=== PATIENT | male | born 1985 | race Caucasian/White ===

== ENCOUNTER 2017-05-06 20:28 | Emergency (ER) | payer MEDICAID ==
[~2017-05-06] VITALS: Ht 167.6 cm; Wt 66.0 kg
[~2017-05-06 20:28] MED LIST: OLAN5Z PO
[2017-05-06 21:34] LABS: BASOPHILS % (AUTO) 0.6 % (0.0-2.0); EOSINOPHILS % (AUTO) 0.7 % (1.0-6.0); HEMATOCRIT 40.3 % (41-53); LYMPHOCYTES # (AUTO) 1.9 K/uL (1.0-4.8); LYMPHOCYTES % (AUTO) 41.1 % (22.0-44.0); MEAN CORPUSCULAR HEMOGLOBIN 31.4 pg (26.0-34.0); MEAN CORPUSCULAR HGB CONC 34.6 G/dL (31.0-37.0); MEAN CORPUSCULAR VOLUME 91 fL (80-100); MONOCYTES # (AUTO) 0.3 K/uL (0.1-1.0); NEUTROPHILS # (AUTO) 2.4 K/uL (1.8-7.7); NEUTROPHILS % (AUTO) 51.6 % (40.0-70.0); RED BLOOD CELL COUNT(AUTO) 4.45 MIL/uL (4.50-5.90); RED CELL DISTRIBUTION WIDTH 16.1 % (11.5-14.5); WHITE BLOOD COUNT (AUTO) 4.7 K/uL (4.5-11.0)
[2017-05-06 21:49] LABS: ANION GAP 14 mmol/L (8-16); CALCIUM, TOTAL 9.5 mg/dL (8.8-10.5); CARBON DIOXIDE 26 mmol/L (22-29); CHLORIDE 97 mmol/L (98-107); CREATININE 0.74 mg/dL (0.60-1.30); GLOMERULAR FILTR. RATE CALC > 60 mL/min (>60); POTASSIUM 3.8 mmol/L (3.5-5.1); SODIUM SERUM 137 mmol/L (136-145); UREA NITROGEN, BLOOD 3 mg/dL (7-18)
[2017-05-06 21:55] LABS: ALANINE AMINOTRANSFERASE 278 U/L (12-78); ALBUMIN 4.6 g/dL (3.4-5.0); ASPARTATE AMINOTRANSFERASE 269 U/L (15-37); BILIRUBIN,TOTAL 0.6 mg/dL (0.1-1.0); TOTAL PROTEIN, SERUM 8.4 g/dL (6.4-8.2)
[2017-05-06 22:41] LABS: PLATELET COUNT (AUTO) 93 K/uL (150-450)
[2017-05-07 05:36] VITALS: BP 122/73
== END 2017-05-07 06:05 | disposition home or self-care (01) ==
LOC: EMS 20:29
DX: R41.82 Altered mental status, unspecified (principal); F10.129 Alcohol abuse with intoxication, unspecified; K70.30 Alcoholic cirrhosis of liver without ascites; F32.9 Major depressive disorder, single episode, unspecified; Z59.0 Homelessness
CPT/HCPCS: 36415; 80053; 80307; 85025; 99284; G0480

== ENCOUNTER 2017-05-20 23:03 | Emergency (ER) | payer MEDICAID ==
[~2017-05-20] VITALS: Ht 165.1 cm; Wt 72.7 kg
[2017-05-20] MEDS ORDERED: BENZ1TAB10 PO (23:18)
[2017-05-20] MEDS ORDERED: HALO10 PO (23:18)
[2017-05-20] MEDS ORDERED: SIMV-259 PO (23:18)
[2017-05-21 00:04] LABS: BASOPHILS % (AUTO) 0.7 % (0.0-2.0); EOSINOPHILS % (AUTO) 0.7 % (1.0-6.0); HEMATOCRIT 37.8 % (41-53); HEMOGLOBIN 12.9 g/dL (13.5-17.5); LYMPHOCYTES # (AUTO) 1.4 K/uL (1.0-4.8); LYMPHOCYTES % (AUTO) 21.3 % (22.0-44.0); MEAN CORPUSCULAR HEMOGLOBIN 31.7 pg (26.0-34.0); MEAN CORPUSCULAR VOLUME 93 fL (80-100); MONOCYTES # (AUTO) 0.9 K/uL (0.1-1.0); MONOCYTES % (AUTO) 13.4 % (2.0-9.0); NEUTROPHILS # (AUTO) 4.3 K/uL (1.8-7.7); NEUTROPHILS % (AUTO) 63.9 % (40.0-70.0); RED BLOOD CELL COUNT(AUTO) 4.06 MIL/uL (4.50-5.90); RED CELL DISTRIBUTION WIDTH 15.2 % (11.5-14.5); WHITE BLOOD COUNT (AUTO) 6.7 K/uL (4.5-11.0)
[2017-05-21 00:12] LABS: ANION GAP 12 mmol/L (8-16); CALCIUM, TOTAL 9.6 mg/dL (8.8-10.5); CARBON DIOXIDE 25 mmol/L (22-29); CHLORIDE 105 mmol/L (98-107); CREATININE 0.87 mg/dL (0.60-1.30); GLOMERULAR FILTR. RATE CALC > 60 mL/min (>60); POTASSIUM 3.9 mmol/L (3.5-5.1); SODIUM SERUM 142 mmol/L (136-145); UREA NITROGEN, BLOOD 15 mg/dL (7-18)
[2017-05-21 00:19] LABS: ALANINE AMINOTRANSFERASE 255 U/L (12-78); ALBUMIN 4.2 g/dL (3.4-5.0); ASPARTATE AMINOTRANSFERASE 141 U/L (15-37); BILIRUBIN,TOTAL 0.3 mg/dL (0.1-1.0); TOTAL PROTEIN, SERUM 7.7 g/dL (6.4-8.2)
[2017-05-21 00:47] LABS: PLATELET COUNT (AUTO) 127 K/uL (150-450)
[2017-05-21 07:11] VITALS: BP 123/92
== END 2017-05-21 07:40 | disposition home or self-care (01) ==
LOC: EMS 23:04
DX: F10.239 Alcohol dependence with withdrawal, unspecified (principal); K70.30 Alcoholic cirrhosis of liver without ascites; F91.9 Conduct disorder, unspecified; F32.9 Major depressive disorder, single episode, unspecified; Y90.0 Blood alcohol level of less than 20 mg/100 ml
CPT/HCPCS: 99285

== ENCOUNTER 2017-05-21 10:55 | Emergency (ER) | payer MEDICAID ==
[~2017-05-21] VITALS: Ht 162.6 cm; Wt 86.4 kg
[~2017-05-21 10:55] MED LIST changes: +BENZ1TAB10 PO; +HALO10 PO; -OLAN5Z PO; +SIMV-259 PO
[2017-05-21] MEDS ORDERED: SODIUM CHLORIDE 0.9% 2,000 ML IV ONE (12:00)
[2017-05-21 12:13] LABS: BASOPHILS % (AUTO) 0.6 % (0.0-2.0); EOSINOPHILS % (AUTO) 1.1 % (1.0-6.0); HEMATOCRIT 38.6 % (41-53); HEMOGLOBIN 13.2 g/dL (13.5-17.5); LYMPHOCYTES # (AUTO) 1.1 K/uL (1.0-4.8); LYMPHOCYTES % (AUTO) 26.5 % (22.0-44.0); MEAN CORPUSCULAR HEMOGLOBIN 31.8 pg (26.0-34.0); MEAN CORPUSCULAR HGB CONC 34.2 G/dL (31.0-37.0); MEAN CORPUSCULAR VOLUME 93 fL (80-100); MONOCYTES # (AUTO) 0.6 K/uL (0.1-1.0); MONOCYTES % (AUTO) 15.8 % (2.0-9.0); NEUTROPHILS # (AUTO) 2.3 K/uL (1.8-7.7); PLATELET COUNT (AUTO) 134 K/uL (150-450); RED BLOOD CELL COUNT(AUTO) 4.17 MIL/uL (4.50-5.90); RED CELL DISTRIBUTION WIDTH 14.9 % (11.5-14.5); WHITE BLOOD COUNT (AUTO) 4.1 K/uL (4.5-11.0)
[2017-05-21 12:22] LABS: ANION GAP 9 mmol/L (8-16); CALCIUM, TOTAL 9.3 mg/dL (8.8-10.5); CARBON DIOXIDE 26 mmol/L (22-29); CHLORIDE 106 mmol/L (98-107); CREATININE 0.72 mg/dL (0.60-1.30); GLOMERULAR FILTR. RATE CALC > 60 mL/min (>60); POTASSIUM 3.8 mmol/L (3.5-5.1); SODIUM SERUM 141 mmol/L (136-145); UREA NITROGEN, BLOOD 11 mg/dL (7-18)
[2017-05-21 12:28] LABS: ACETAMINOPHEN < 2 mcg/mL (10-30); ALANINE AMINOTRANSFERASE 278 U/L (12-78); ASPARTATE AMINOTRANSFERASE 163 U/L (15-37); BILIRUBIN,TOTAL 0.5 mg/dL (0.1-1.0); TOTAL PROTEIN, SERUM 7.5 g/dL (6.4-8.2)
[2017-05-21 12:29] LABS: AMMONIA 40 umol/L (11-32)
[2017-05-21 12:30] LABS: TROPONIN I < 0.02 ng/mL (0.00-0.05)
[2017-05-21 12:39] LABS: SALICYLATE 1.8 mg/dL (2.8-20.0)
[2017-05-21 13:15] LABS: APPEARANCE,URINE CLEAR (CLEAR); GLUCOSE, URINE (UA) NEGATIVE (NEGATIVE); KETONES,URINE NEGATIVE (NEGATIVE); LEUKOCYTE ESTERASE ,URINE NEGATIVE (NEGATIVE); OCCULT BLOOD,URINE NEGATIVE (NEGATIVE); PROTEIN,URINE NEGATIVE (NEGATIVE)
[2017-05-21 13:17] LABS: ADD UA MICROSCOPIC NO
[2017-05-21] MEDS ORDERED: ACETAMINOPHEN 325 MG TABLET PO PRN (13:30)
[2017-05-21] MEDS ORDERED: LACTULOSE 200 GM/300 ML RECTAL SOLUTION PR ONE (13:30)
[2017-05-21] MEDS ORDERED: 0.9% SODIUM CHLORIDE 10 ML SYRINGE IVP PRN (13:30)
[2017-05-21] MEDS ORDERED: LACTULOSE 20 GM/30 ML SOLUTION UDCUP PO ONE (15:30)
[2017-05-21 23:17] VITALS: BP 118/70
== END 2017-05-21 23:20 | disposition home or self-care (01) ==
LOC: EMS 10:56
DX: K72.90 Hepatic failure, unspecified without coma (principal); R74.0 Nonspecific elevation of levels of transaminase and lactic acid dehydrogenase [LDH]; R41.82 Altered mental status, unspecified
CPT/HCPCS: 36415; 51702; 70450; 80053; 80307; 81003; 82140; 84484; 85025; 93005; 96360; 99285; G0480 ×2; G0481; J7030; 96361

== ENCOUNTER 2017-07-05 13:54 | Inpatient (IN) | payer MEDICAID ==
[~2017-07-05] VITALS: Ht 165.1 cm; Wt 69.9 kg
[2017-07-05 17:57] VITALS: BP 122/85
[2017-07-05] MEDS ORDERED: MAG HYDROX/AL HYDROX/SIMETH ES 30 ML SUSPENSION UDCUP PO PRN (18:45)
[2017-07-05] MEDS ORDERED: HALOPERIDOL 5 MG TABLET PO PRN (18:45)
[2017-07-05] MEDS ORDERED: ZOLPIDEM TARTRATE 10 MG TABLET PO PRN (18:45)
[2017-07-05] MEDS ORDERED: LORazepam 2 MG TABLET PO PRN (18:45)
[2017-07-05] MEDS ORDERED: LOPERAMIDE HCL 2 MG CAPSULE PO PRN (18:45)
[2017-07-05 19:00] VITALS: BP_SYST 109; BP_SYST 115; BP_DIAS 61; BP_DIAS 79
[2017-07-05] MEDS: OLANZapine 10 MG TABLET PO SCH (20:10)
[2017-07-05] MEDS ORDERED: PANT40TA25 PO (20:41)
[2017-07-05] MEDS ORDERED: LIB5 PO (20:41)
[2017-07-05] MEDS ORDERED: THIA100 PO (20:41)
[2017-07-05] MEDS ORDERED: OLAN7.5T2 PO (20:41)
[2017-07-05] MEDS ORDERED: MULT-1203 PO (20:41)
[2017-07-05 20:49] VITALS: BP 121/76
[2017-07-05 21:01] VITALS: BP 118/67
[2017-07-06 00:55] VITALS: BP 106/63
[2017-07-06 08:23] LABS: BASOPHILS # (AUTO) 0.05 K/uL (0.00-0.20); BASOPHILS % (AUTO) 0.7 % (0.0-2.0); EOSINOPHILS # (AUTO) 0.07 K/uL (0.00-0.70); EOSINOPHILS % (AUTO) 1.12 % (1.0-6.0); HEMATOCRIT 38.9 % (41-53); LYMPHOCYTES # (AUTO) 1.7 K/uL (1.0-4.8); LYMPHOCYTES % (AUTO) 27.3 % (22.0-44.0); MEAN CORPUSCULAR HEMOGLOBIN 31.5 pg (26.0-34.0); MEAN CORPUSCULAR HGB CONC 33.4 G/dL (31.0-37.0); MEAN CORPUSCULAR VOLUME 94 fL (80-100); MONOCYTES # (AUTO) 0.9 K/uL (0.1-1.0); MONOCYTES % (AUTO) 15.2 % (2.0-9.0); NEUTROPHILS # (AUTO) 3.4 K/uL (1.8-7.7); NEUTROPHILS % (AUTO) 55.6 % (40.0-70.0); PLATELET COUNT (AUTO) 167 K/uL (150-450); RED BLOOD CELL COUNT(AUTO) 4.14 MIL/uL (4.50-5.90); WHITE BLOOD COUNT (AUTO) 6.1 K/uL (4.5-11.0)
[2017-07-06 08:37] VITALS: BP 110/64
[2017-07-06 08:59] LABS: ALANINE AMINOTRANSFERASE 163 U/L (12-78); ALBUMIN 3.6 g/dL (3.4-5.0); ANION GAP 5 mmol/L (8-16); ASPARTATE AMINOTRANSFERASE 62 U/L (15-37); BILIRUBIN,TOTAL 0.2 mg/dL (0.1-1.0); CALCIUM, TOTAL 8.6 mg/dL (8.8-10.5); CARBON DIOXIDE 32 mmol/L (22-29); CHLORIDE 104 mmol/L (98-107); CREATININE 0.78 mg/dL (0.60-1.30); GLOMERULAR FILTR. RATE CALC > 60 mL/min (>60); POTASSIUM 3.9 mmol/L (3.5-5.1); SODIUM SERUM 141 mmol/L (136-145); THYROID STIMULATING HORMONE 3.17 uIU/mL (0.36-3.74); TOTAL PROTEIN, SERUM 7.4 g/dL (6.4-8.2); UREA NITROGEN, BLOOD 13 mg/dL (7-18)
[2017-07-06] MEDS ORDERED: BACITRACIN 28.4 GM OINTMENT TP PRN (09:00)
[2017-07-06] MEDS ORDERED: ONDANSETRON HCL 4 MG TABLET PO PRN (09:00)
[2017-07-06] MEDS ORDERED: LOPERAMIDE HCL 2 MG CAPSULE PO PRN (09:00)
[2017-07-06] MEDS ORDERED: IBUPROFEN 600 MG TABLET PO PRN (09:00)
[2017-07-06] MEDS ORDERED: MAG HYDROX/AL HYDROX/SIMETH ES 30 ML SUSPENSION UDCUP PO PRN (09:00)
[2017-07-06] MEDS ORDERED: PETROLATUM,WHITE 71 GM JELLY TP PRN (09:00)
[2017-07-06] MEDS ORDERED: ALBUTEROL SULFATE HFA 90 MCG/PUFF 8 GM INHALER IH PRN (09:00)
[2017-07-06] MEDS ORDERED: CloNIDine HCL 0.1 MG TABLET PO PRN (09:00)
[2017-07-06] MEDS ORDERED: BENZOCAINE/MENTHOL LOZENGE MM PRN (09:00)
[2017-07-06] MEDS ORDERED: MAGNESIUM HYDROXIDE SUSPENSION 30 ML UDCUP PO PRN (09:00)
[2017-07-06] MEDS ORDERED: ACETAMINOPHEN 325 MG TABLET PO PRN (09:00)
[2017-07-06] MEDS: DOCUSATE SODIUM 100 MG CAPSULE PO SCH (10:00)
[2017-07-06] MEDS: OMEPRAZOLE 20 MG CAPSULE PO SCH (10:00)
[2017-07-06 16:27] VITALS: BP 101/60
[2017-07-06] MEDS: OLANZapine 10 MG TABLET PO SCH (20:50)
[2017-07-07 00:10] VITALS: BP 112/67
[2017-07-07] MEDS: DOCUSATE SODIUM 100 MG CAPSULE PO SCH (08:55)
[2017-07-07] MEDS: OMEPRAZOLE 20 MG CAPSULE PO SCH (08:55)
[2017-07-07 10:55] VITALS: BP 110/70
[2017-07-07 16:36] VITALS: BP 110/67
[2017-07-07] MEDS: OLANZapine 10 MG TABLET PO SCH (20:02)
[2017-07-08 00:39] VITALS: BP 107/68
[2017-07-08] MEDS: DOCUSATE SODIUM 100 MG CAPSULE PO SCH (08:40)
[2017-07-08] MEDS: OMEPRAZOLE 20 MG CAPSULE PO SCH (08:40)
[2017-07-08 09:40] VITALS: BP 104/60
[2017-07-08 16:12] VITALS: BP 118/67
[2017-07-08] MEDS: OLANZapine 10 MG TABLET PO SCH (20:11)
[2017-07-09 03:08] VITALS: BP 102/72
[2017-07-09] MEDS: FERROUS SULFATE 325 MG EC TABLET PO SCH ×2 (06:31→16:15)
[2017-07-09 08:11] VITALS: BP 107/69
[2017-07-09 08:13] LABS: ALBUMIN 3.7 g/dL (3.4-5.0); BILIRUBIN,TOTAL 0.2 mg/dL (0.1-1.0); TOTAL PROTEIN, SERUM 7.2 g/dL (6.4-8.2)
[2017-07-09 08:16] LABS: BILIRUBIN,DIRECT 0.1 mg/dL (0.00-0.20)
[2017-07-09] MEDS: OMEPRAZOLE 20 MG CAPSULE PO SCH (08:32)
[2017-07-09] MEDS: OMEGA-3/DHA/EPA/FISH OIL 500 MG CAPSULE PO SCH (08:32)
[2017-07-09] MEDS: DOCUSATE SODIUM 100 MG CAPSULE PO SCH (08:32)
[2017-07-09 16:31] VITALS: BP 117/71
[2017-07-09] MEDS: OLANZapine 10 MG TABLET PO SCH (20:11)
[2017-07-10] MEDS: FERROUS SULFATE 325 MG EC TABLET PO SCH ×2 (06:16→16:27)
[2017-07-10 06:30] VITALS: BP 103/69
[2017-07-10 07:52] LABS: HEPATITIS Bs ANTIGEN SCREEN P Negative (Negative); HEPATITIS C AB SCREEN <0.1 s/co ratio (0.0-0.9)
[2017-07-10] MEDS: OMEPRAZOLE 20 MG CAPSULE PO SCH (09:31)
[2017-07-10] MEDS: DOCUSATE SODIUM 100 MG CAPSULE PO SCH (09:31)
[2017-07-10 09:32] VITALS: BP 106/69
[2017-07-10] MEDS: OMEGA-3/DHA/EPA/FISH OIL 500 MG CAPSULE PO SCH (10:21)
[2017-07-10 16:23] VITALS: BP 103/72
[2017-07-10] MEDS: OLANZapine 10 MG TABLET PO SCH (20:35)
[2017-07-11 00:01] VITALS: BP 101/67
[2017-07-11] MEDS: FERROUS SULFATE 325 MG EC TABLET PO SCH ×2 (07:06→16:38)
[2017-07-11] MEDS: OMEGA-3/DHA/EPA/FISH OIL 500 MG CAPSULE PO SCH (08:53)
[2017-07-11] MEDS: DOCUSATE SODIUM 100 MG CAPSULE PO SCH (08:53)
[2017-07-11] MEDS: OMEPRAZOLE 20 MG CAPSULE PO SCH (08:53)
[2017-07-11 09:27] VITALS: BP 108/68
[2017-07-11 16:08] VITALS: BP 110/65
[2017-07-11] MEDS: OLANZapine 10 MG TABLET PO SCH (20:37)
[2017-07-12] MEDS: FERROUS SULFATE 325 MG EC TABLET PO SCH (06:39)
[2017-07-12 06:46] VITALS: BP 106/64
[2017-07-12] MEDS ORDERED: OMEP20 PO (08:02)
[2017-07-12] MEDS ORDERED: OMEG-12 PO (08:02)
[2017-07-12] MEDS ORDERED: FERR-89 PO (08:02)
[2017-07-12] MEDS ORDERED: DSS100 PO (08:02)
[2017-07-12 08:50] VITALS: BP 104/66
== END 2017-07-12 10:00 | disposition home or self-care (01) | DRG 750 ==
LOC: B2S 18:48
DX: F25.1 Schizoaffective disorder, depressive type (principal); G40.909 Epilepsy, unspecified, not intractable, without status epilepticus; E58 Dietary calcium deficiency; Z59.0 Homelessness; E78.5 Hyperlipidemia, unspecified; F10.20 Alcohol dependence, uncomplicated; F12.90 Cannabis use, unspecified, uncomplicated; F14.90 Cocaine use, unspecified, uncomplicated; K59.00 Constipation, unspecified; D64.9 Anemia, unspecified; F17.210 Nicotine dependence, cigarettes, uncomplicated; Z89.022 Acquired absence of left finger(s); Z71.51 Drug abuse counseling and surveillance of drug abuser; Z71.41 Alcohol abuse counseling and surveillance of alcoholic; Z71.6 Tobacco abuse counseling; Z91.5 Personal history of self-harm; Z79.899 Other long term (current) drug therapy
CPT/HCPCS: 80074; 84439; 84443; 87081; G0480

== ENCOUNTER 2018-12-25 00:30 | Inpatient (IN) | payer MEDICAID ==
[~2018-12-25] VITALS: Ht 162.6 cm; Wt 81.6 kg
[~2018-12-25 00:30] MED LIST changes: -BENZ1TAB10 PO; +DSS100 PO; +FERR-89 PO; -HALO10 PO; +OLAN7.5T2 PO; +OMEG-12 PO; +OMEP20 PO; -SIMV-259 PO
[2018-12-26] VITALS (9 sets, daily range): BP systolic 108–120; BP diastolic 60–81
[2018-12-26] MEDS ORDERED: HALOPERIDOL 5 MG TABLET PO PRN (01:00)
[2018-12-26] MEDS ORDERED: LORazepam 2 MG TABLET PO PRN (01:00)
[2018-12-26] MEDS: ZOLPIDEM TARTRATE 10 MG TABLET PO PRN (01:59)
[2018-12-26] MEDS ORDERED: IBUPROFEN 400 MG TABLET PO PRN (07:15)
[2018-12-26] MEDS ORDERED: ACETAMINOPHEN 325 MG TABLET PO PRN (07:15)
[2018-12-26] MEDS ORDERED: LOPERAMIDE HCL 2 MG CAPSULE PO PRN (07:15)
[2018-12-26] MEDS ORDERED: GuaiFENesin/D-METHORPHAN [SUGAR-FREE] 200-20MG/10 ML SYRUP UDCUP PO PRN (07:15)
[2018-12-26] MEDS ORDERED: ALBUTEROL SULFATE HFA 90 MCG/PUFF 8 GM INHALER IH PRN (07:15)
[2018-12-26] MEDS ORDERED: DOCUSATE SODIUM 100 MG CAPSULE PO PRN (07:15)
[2018-12-26] MEDS ORDERED: MAG HYDROX/AL HYDROX/SIMETH ES 30 ML SUSPENSION UDCUP PO PRN (07:15)
[2018-12-26] MEDS ORDERED: CloNIDine HCL 0.1 MG TABLET PO PRN (07:15)
[2018-12-26] MEDS ORDERED: MAGNESIUM HYDROXIDE SUSPENSION 30 ML UDCUP PO PRN (07:15)
[2018-12-26] MEDS ORDERED: ONDANSETRON HCL 4 MG TABLET PO PRN (07:15)
[2018-12-26] MEDS ORDERED: PETROLATUM,WHITE 28 GM JELLY TP PRN (07:15)
[2018-12-26] MEDS: OLANZapine 5 MG TABLET PO SCH (14:10)
[2018-12-26] MEDS: SERTRALINE HCL 50 MG TABLET PO SCH (14:10)
[2018-12-26] MEDS: FERROUS SULFATE 325 MG EC TABLET PO SCH (15:58)
[2018-12-26] MEDS: OLANZapine 10 MG TABLET PO SCH (20:54)
[2018-12-27 04:58] VITALS: BP 108/62
[2018-12-27] MEDS: FERROUS SULFATE 325 MG EC TABLET PO SCH ×2 (06:24→16:05)
[2018-12-27 07:49] LABS: BASOPHILS % (AUTO) 0.5 % (0.0-2.0); HEMATOCRIT 42.9 % (41-53); HEMOGLOBIN 14.4 g/dL (13.5-17.5); LYMPHOCYTES # (AUTO) 1.1 K/uL (1.0-4.8); LYMPHOCYTES % (AUTO) 25.7 % (22.0-44.0); MEAN CORPUSCULAR HEMOGLOBIN 29.3 pg (26.0-34.0); MEAN CORPUSCULAR HGB CONC 33.6 G/dL (31.0-37.0); MEAN CORPUSCULAR VOLUME 87 fL (80-100); MONOCYTES # (AUTO) 0.4 K/uL (0.1-1.0); MONOCYTES % (AUTO) 9.6 % (2.0-9.0); NEUTROPHILS # (AUTO) 2.7 K/uL (1.8-7.7); NEUTROPHILS % (AUTO) 62.2 % (40.0-70.0); PLATELET COUNT (AUTO) 180 K/uL (150-450); RED BLOOD CELL COUNT(AUTO) 4.91 MIL/uL (4.50-5.90); RED CELL DISTRIBUTION WIDTH 15.4 % (11.5-14.5)
[2018-12-27 08:12] LABS: HEMOGLOBIN A1C 6.3 % (4.5-6.2)
[2018-12-27 08:16] LABS: ALANINE AMINOTRANSFERASE 35 U/L (12-78); ALBUMIN 3.7 g/dL (3.4-5.0); ALKALINE PHOSPHATASE 89 U/L (46-116); ANION GAP 6 mmol/L (8-16); ASPARTATE AMINOTRANSFERASE 28 U/L (15-37); BILIRUBIN,TOTAL 0.5 mg/dL (0.1-1.0); CALCIUM, TOTAL 9.3 mg/dL (8.8-10.5); CARBON DIOXIDE 29 mmol/L (22-29); CHLORIDE 102 mmol/L (98-107); CHOL/HDL RATIO 4.6 (4.2-7.3); CHOLESTEROL 260 mg/dL (131-200); CREATININE 0.78 mg/dL (0.60-1.30); FREE T4 (FREE THYROXINE) 0.94 ng/dL (0.76-1.46); GLOMERULAR FILTR. RATE CALC > 60 mL/min (>60); GLUCOSE,RANDOM 96 mg/dL (70-110); HDL CHOLESTEROL 56 mg/dL (40-60); LDL CHOL (CALC.) 156 mg/dL (0-130); POTASSIUM 4.4 mmol/L (3.5-5.1); SODIUM SERUM 137 mmol/L (136-145); THYROID STIMULATING HORMONE 1.14 uIU/mL (0.36-3.74); TOTAL PROTEIN, SERUM 7.6 g/dL (6.4-8.2); TRIGLYCERIDES 239 mg/dL (15-150); UREA NITROGEN, BLOOD 11 mg/dL (7-18)
[2018-12-27] MEDS: SERTRALINE HCL 50 MG TABLET PO SCH (08:42)
[2018-12-27] MEDS: OLANZapine 5 MG TABLET PO SCH (08:42)
[2018-12-27] MEDS: OMEPRAZOLE 20 MG CAPSULE PO SCH (08:42)
[2018-12-27] MEDS: DOCUSATE SODIUM 100 MG CAPSULE PO SCH (08:42)
[2018-12-27 09:21] VITALS: BP 113/80
[2018-12-27 09:23] VITALS: BP 113/80
[2018-12-27 16:20] VITALS: BP 124/68
[2018-12-27 16:22] VITALS: BP 124/68
[2018-12-27] MEDS: ZOLPIDEM TARTRATE 10 MG TABLET PO PRN (20:35)
[2018-12-27] MEDS: OLANZapine 10 MG TABLET PO SCH (20:35)
[2018-12-28] MEDS: FERROUS SULFATE 325 MG EC TABLET PO SCH ×2 (07:01→17:35)
[2018-12-28 08:53] VITALS: BP 117/61
[2018-12-28 08:54] VITALS: BP 117/61
[2018-12-28] MEDS: SERTRALINE HCL 50 MG TABLET PO SCH (09:38)
[2018-12-28] MEDS: OMEPRAZOLE 20 MG CAPSULE PO SCH (09:38)
[2018-12-28] MEDS: OLANZapine 5 MG TABLET PO SCH (09:38)
[2018-12-28] MEDS: DOCUSATE SODIUM 100 MG CAPSULE PO SCH (09:38)
[2018-12-28 17:26] VITALS: BP 113/68
[2018-12-28] MEDS: SIMVASTATIN 20 MG TABLET PO SCH (20:52)
[2018-12-28] MEDS: OLANZapine 10 MG TABLET PO SCH (20:52)
[2018-12-29] MEDS: FERROUS SULFATE 325 MG EC TABLET PO SCH ×2 (07:08→17:01)
[2018-12-29] MEDS: SERTRALINE HCL 50 MG TABLET PO SCH (09:47)
[2018-12-29] MEDS: OMEPRAZOLE 20 MG CAPSULE PO SCH (09:47)
[2018-12-29] MEDS: DOCUSATE SODIUM 100 MG CAPSULE PO SCH (09:47)
[2018-12-29] MEDS: OLANZapine 5 MG TABLET PO SCH (09:47)
[2018-12-29 10:29] VITALS: BP 118/67
[2018-12-29 16:05] VITALS: BP 117/69
[2018-12-29] MEDS: SIMVASTATIN 20 MG TABLET PO SCH (20:57)
[2018-12-29] MEDS: OLANZapine 10 MG TABLET PO SCH (20:57)
[2018-12-30 02:43] VITALS: BP 118/70
[2018-12-30] MEDS: FERROUS SULFATE 325 MG EC TABLET PO SCH ×2 (07:00→16:11)
[2018-12-30] MEDS: SERTRALINE HCL 50 MG TABLET PO SCH (08:36)
[2018-12-30] MEDS: OLANZapine 5 MG TABLET PO SCH (08:37)
[2018-12-30] MEDS: OMEPRAZOLE 20 MG CAPSULE PO SCH (08:37)
[2018-12-30] MEDS: DOCUSATE SODIUM 100 MG CAPSULE PO SCH (08:37)
[2018-12-30 08:45] VITALS: BP 107/75
[2018-12-30 16:08] VITALS: BP 114/90
[2018-12-30] MEDS: SIMVASTATIN 20 MG TABLET PO SCH (20:16)
[2018-12-30] MEDS: OLANZapine 10 MG TABLET PO SCH (20:16)
[2018-12-31 00:54] VITALS: BP 118/70
[2018-12-31] MEDS: FERROUS SULFATE 325 MG EC TABLET PO SCH ×2 (07:12→16:21)
[2018-12-31 08:00] VITALS: BP 119/68
[2018-12-31] MEDS: SERTRALINE HCL 50 MG TABLET PO SCH (08:27)
[2018-12-31] MEDS: DOCUSATE SODIUM 100 MG CAPSULE PO SCH (08:27)
[2018-12-31] MEDS: OLANZapine 5 MG TABLET PO SCH (08:29)
[2018-12-31] MEDS: OMEPRAZOLE 20 MG CAPSULE PO SCH (10:27)
[2018-12-31 16:22] VITALS: BP 116/66
[2018-12-31] MEDS: SIMVASTATIN 20 MG TABLET PO SCH (20:08)
[2018-12-31] MEDS: OLANZapine 10 MG TABLET PO SCH (20:08)
[2019-01-01 00:30] VITALS: BP 120/60
[2019-01-01] MEDS: FERROUS SULFATE 325 MG EC TABLET PO SCH ×2 (07:18→17:19)
[2019-01-01] MEDS: DOCUSATE SODIUM 100 MG CAPSULE PO SCH (08:00)
[2019-01-01] MEDS: SERTRALINE HCL 50 MG TABLET PO SCH (08:00)
[2019-01-01] MEDS: OMEPRAZOLE 20 MG CAPSULE PO SCH (08:00)
[2019-01-01] MEDS: OLANZapine 5 MG TABLET PO SCH (08:02)
[2019-01-01 08:19] VITALS: BP 114/73
[2019-01-01 16:20] VITALS: BP 121/65
[2019-01-01] MEDS: SIMVASTATIN 20 MG TABLET PO SCH (20:23)
[2019-01-01] MEDS: OLANZapine 10 MG TABLET PO SCH (20:23)
[2019-01-02] VITALS: BP 119/65
[2019-01-02] MEDS: FERROUS SULFATE 325 MG EC TABLET PO SCH ×2 (07:22→16:39)
[2019-01-02 08:14] VITALS: BP 100/58
[2019-01-02] MEDS: SERTRALINE HCL 50 MG TABLET PO SCH (09:21)
[2019-01-02] MEDS: OLANZapine 5 MG TABLET PO SCH (09:21)
[2019-01-02] MEDS: OMEPRAZOLE 20 MG CAPSULE PO SCH (09:21)
[2019-01-02] MEDS: DOCUSATE SODIUM 100 MG CAPSULE PO SCH (09:21)
[2019-01-02 10:04] LABS: BASOPHILS % (AUTO) 0.3 % (0.0-2.0); EOSINOPHILS % (AUTO) 1.8 % (1.0-6.0); HEMATOCRIT 41.3 % (41-53); HEMOGLOBIN 13.7 g/dL (13.5-17.5); LYMPHOCYTES # (AUTO) 1.7 K/uL (1.0-4.8); LYMPHOCYTES % (AUTO) 32.6 % (22.0-44.0); MEAN CORPUSCULAR HEMOGLOBIN 29.4 pg (26.0-34.0); MEAN CORPUSCULAR HGB CONC 33.2 G/dL (31.0-37.0); MEAN CORPUSCULAR VOLUME 89 fL (80-100); MONOCYTES # (AUTO) 0.5 K/uL (0.1-1.0); MONOCYTES % (AUTO) 9.3 % (2.0-9.0); NEUTROPHILS # (AUTO) 2.9 K/uL (1.8-7.7); PLATELET COUNT (AUTO) 146 K/uL (150-450); RED BLOOD CELL COUNT(AUTO) 4.65 MIL/uL (4.50-5.90); RED CELL DISTRIBUTION WIDTH 15.2 % (11.5-14.5)
[2019-01-02 16:44] VITALS: BP 119/65
[2019-01-02] MEDS: OLANZapine 10 MG TABLET PO SCH (20:12)
[2019-01-02] MEDS: SIMVASTATIN 20 MG TABLET PO SCH (20:12)
[2019-01-03 00:10] VITALS: BP 107/84
[2019-01-03] MEDS: FERROUS SULFATE 325 MG EC TABLET PO SCH ×2 (06:52→16:09)
[2019-01-03 08:01] VITALS: BP 103/55
[2019-01-03] MEDS: SERTRALINE HCL 50 MG TABLET PO SCH (08:42)
[2019-01-03] MEDS: OMEPRAZOLE 20 MG CAPSULE PO SCH (08:42)
[2019-01-03] MEDS: OLANZapine 5 MG TABLET PO SCH (08:42)
[2019-01-03] MEDS: DOCUSATE SODIUM 100 MG CAPSULE PO SCH (08:42)
[2019-01-03] MEDS: OMEGA-3/DHA/EPA/FISH OIL 1,000 MG CAPSULE PO SCH (08:42)
[2019-01-03 10:16] VITALS: BP 110/65
[2019-01-03 16:14] VITALS: BP 106/60
[2019-01-03] MEDS: OLANZapine 10 MG TABLET PO SCH (20:08)
[2019-01-03] MEDS: SIMVASTATIN 20 MG TABLET PO SCH (20:08)
[2019-01-03] MEDS: ZOLPIDEM TARTRATE 10 MG TABLET PO PRN (20:17)
[2019-01-04 03:29] VITALS: BP 123/86
[2019-01-04] MEDS: FERROUS SULFATE 325 MG EC TABLET PO SCH ×2 (06:52→16:21)
[2019-01-04 08:00] VITALS: BP 104/60
[2019-01-04] MEDS: DOCUSATE SODIUM 100 MG CAPSULE PO SCH (08:24)
[2019-01-04] MEDS: SERTRALINE HCL 50 MG TABLET PO SCH (08:24)
[2019-01-04] MEDS: OLANZapine 5 MG TABLET PO SCH (08:24)
[2019-01-04] MEDS: OMEPRAZOLE 20 MG CAPSULE PO SCH (08:25)
[2019-01-04] MEDS: OMEGA-3/DHA/EPA/FISH OIL 1,000 MG CAPSULE PO SCH (08:25)
[2019-01-04 16:13] VITALS: BP 110/71
[2019-01-04] MEDS: OLANZapine 10 MG TABLET PO SCH (20:23)
[2019-01-04] MEDS: SIMVASTATIN 20 MG TABLET PO SCH (20:23)
[2019-01-05 01:14] VITALS: BP 99/62
[2019-01-05] MEDS: FERROUS SULFATE 325 MG EC TABLET PO SCH ×2 (06:57→16:28)
[2019-01-05 08:55] VITALS: BP 114/62
[2019-01-05] MEDS: SERTRALINE HCL 50 MG TABLET PO SCH (08:59)
[2019-01-05] MEDS: OLANZapine 5 MG TABLET PO SCH (08:59)
[2019-01-05] MEDS: OMEGA-3/DHA/EPA/FISH OIL 1,000 MG CAPSULE PO SCH (08:59)
[2019-01-05] MEDS: OMEPRAZOLE 20 MG CAPSULE PO SCH (08:59)
[2019-01-05] MEDS: DOCUSATE SODIUM 100 MG CAPSULE PO SCH (08:59)
[2019-01-05 16:24] VITALS: BP 115/63
[2019-01-05] MEDS: SIMVASTATIN 20 MG TABLET PO SCH (20:32)
[2019-01-05] MEDS: OLANZapine 10 MG TABLET PO SCH (20:32)
[2019-01-06 04:24] VITALS: BP 112/76
[2019-01-06] MEDS: FERROUS SULFATE 325 MG EC TABLET PO SCH (06:48)
[2019-01-06 08:30] VITALS: BP 110/64
[2019-01-06] MEDS: OMEGA-3/DHA/EPA/FISH OIL 1,000 MG CAPSULE PO SCH (09:40)
[2019-01-06] MEDS: SERTRALINE HCL 50 MG TABLET PO SCH (09:40)
[2019-01-06] MEDS: DOCUSATE SODIUM 100 MG CAPSULE PO SCH (09:41)
[2019-01-06] MEDS: OMEPRAZOLE 20 MG CAPSULE PO SCH (09:41)
[2019-01-06] MEDS: OLANZapine 5 MG TABLET PO SCH (09:41)
[2019-01-06] MEDS ORDERED: SIMV-260 PO (13:24)
[2019-01-06] MEDS ORDERED: OLAN5TAB2 PO (13:24)
[2019-01-06] MEDS ORDERED: SERT50TA12 PO (13:55)
[2019-01-06 16:22] VITALS: BP 116/90
== END 2019-01-06 15:00 | disposition home or self-care (01) | DRG 750 ==
LOC: B2S 12-26 01:00
PROVIDERS: ADMIT Psychiatry & Neurology Child & Adolescent Psychiatry; ATTEND Psychiatry & Neurology Child & Adolescent Psychiatry
DX: F25.0 Schizoaffective disorder, bipolar type (principal); Z91.19 Patient's noncompliance with other medical treatment and regimen; D72.819 Decreased white blood cell count, unspecified; E78.5 Hyperlipidemia, unspecified; F10.10 Alcohol abuse, uncomplicated; F12.90 Cannabis use, unspecified, uncomplicated; F14.90 Cocaine use, unspecified, uncomplicated; K21.9 Gastro-esophageal reflux disease without esophagitis; K59.00 Constipation, unspecified; F41.9 Anxiety disorder, unspecified; Z23 Encounter for immunization
CPT/HCPCS: 83036; 84439; 84443; 90686

== ENCOUNTER 2021-09-25 10:40 | Inpatient (IN) | payer MEDICAID, OTHER ==
[~2021-09-25] VITALS: Ht 167.6 cm; Wt 83.8 kg
[~2021-09-25 10:40] MED LIST changes: -DSS100 PO; -FERR-89 PO; +OLAN5TAB52 PO; -OLAN7.5T2 PO; +OLAN7.5T22 PO; -OMEG-12 PO; +SERT-158 PO; +SIMV-260 PO
[2021-09-25 12:16] LABS: BASOPHILS % (AUTO) 0.5 % (0.0-2.0); EOSINOPHILS % (AUTO) 0.1 % (1.0-6.0); HEMATOCRIT 43.8 % (41-53); HEMOGLOBIN 15.1 g/dL (13.5-17.5); LYMPHOCYTES # (AUTO) 2.4 K/uL (1.0-4.8); MEAN CORPUSCULAR HEMOGLOBIN 29.5 pg (26.0-34.0); MEAN CORPUSCULAR HGB CONC 34.4 G/dL (31.0-37.0); MEAN CORPUSCULAR VOLUME 86 fL (80-100); MONOCYTES # (AUTO) 0.3 K/uL (0.1-1.0); MONOCYTES % (AUTO) 4.3 % (2.0-9.0); NEUTROPHILS # (AUTO) 3.8 K/uL (1.8-7.7); NEUTROPHILS % (AUTO) 58.1 % (40.0-70.0); PLATELET COUNT (AUTO) 243 K/uL (150-450); RED BLOOD CELL COUNT(AUTO) 5.11 MIL/uL (4.50-5.90); RED CELL DISTRIBUTION WIDTH 13.9 % (11.5-14.5)
[2021-09-25 12:30] LABS: ANION GAP 8 mmol/L (8-16); CALCIUM, TOTAL 8.8 mg/dL (8.8-10.5); CARBON DIOXIDE 31 mmol/L (22-29); CHLORIDE 100 mmol/L (98-107); CREATININE 0.93 mg/dL (0.60-1.30); GLOMERULAR FILTR. RATE CALC > 60 mL/min (>60); GLUCOSE,RANDOM 108 mg/dL (70-110); POTASSIUM 4.1 mmol/L (3.5-5.1); SODIUM SERUM 139 mmol/L (136-145); UREA NITROGEN, BLOOD 6 mg/dL (7-18)
[2021-09-25 12:34] LABS: ALANINE AMINOTRANSFERASE 57 U/L (12-78); ALBUMIN 4.3 g/dL (3.4-5.0); ALKALINE PHOSPHATASE 91 U/L (46-116); ASPARTATE AMINOTRANSFERASE 38 U/L (15-37); BILIRUBIN,TOTAL 0.2 mg/dL (0.1-1.0); TOTAL PROTEIN, SERUM 8.5 g/dL (6.4-8.2)
[2021-09-25 13:09] LABS: COVID AG,FIA SOURCE NASOPHARYNGEAL
[2021-09-25] MEDS ORDERED: OLANZapine 5 MG RAPDIS TABLET PO PRN (13:15)
[2021-09-25] MEDS ORDERED: HydrOXYzine PAMOATE 50 MG CAPSULE PO PRN (13:15)
[2021-09-25] MEDS ORDERED: ZOLPIDEM TARTRATE 10 MG TABLET PO PRN (13:15)
[2021-09-25] MEDS ORDERED: GuaiFENesin/D-METHORPHAN [SUGAR-FREE] 200-20MG/10 ML SYRUP UDCUP PO PRN (13:15)
[2021-09-25] MEDS ORDERED: PROMETHAZINE HCL 25 MG TABLET PO PRN (13:15)
[2021-09-25] MEDS ORDERED: LORazepam 2 MG TABLET PO PRN (13:15)
[2021-09-25] MEDS ORDERED: TUBERCULIN, PURIFIED PROTEIN DERIVATIVE 5 TU/0.1 ML SYRINGE ID ONE (13:15)
[2021-09-25 16:06] LABS: SALICYLATE < 2.8 mg/dL (2.8-20.0)
[2021-09-25 16:09] LABS: ACETAMINOPHEN < 2 mcg/mL (10-30)
[2021-09-25] MEDS: MELATONIN 5 MG TABLET PO SCH (22:14)
[2021-09-25] MEDS: THIAMINE 100 MG TABLET PO SCH (22:14)
[2021-09-25] MEDS: SERTRALINE HCL 100 MG TABLET PO SCH (22:14)
[2021-09-25] MEDS: OLANZapine 5 MG RAPDIS TABLET PO SCH (22:15)
[2021-09-26 00:12] VITALS: BP 137/82
[2021-09-26 07:07] LABS: HEMOGLOBIN A1C 7.9 % (3.8-5.6)
[2021-09-26 07:29] LABS: CHOL/HDL RATIO 3.7 (4.2-7.3); FREE T4 (FREE THYROXINE) 0.96 ng/dL (0.76-1.46); THYROID STIMULATING HORMONE 2.22 uIU/mL (0.36-3.74)
[2021-09-26 08:13] VITALS: BP 121/72
[2021-09-26] MEDS: OMEGA-3/DHA/EPA/FISH OIL 1,000 MG CAPSULE PO SCH (08:47)
[2021-09-26] MEDS: NALTREXONE HCL 50 MG TABLET PO SCH (08:47)
[2021-09-26] MEDS: FOLIC ACID 1 MG TABLET PO SCH (08:48)
[2021-09-26] MEDS: THIAMINE 100 MG TABLET PO SCH ×2 (08:48→16:47)
[2021-09-26] MEDS: MULTIVITAMINS WITH MINERALS, THERAPEUTIC TABLET PO SCH (08:48)
[2021-09-26] MEDS ORDERED: DIAZEPAM 10 MG TABLET PO ONE (09:30)
[2021-09-26] MEDS ORDERED: LOPERAMIDE HCL 2 MG CAPSULE PO PRN (09:30)
[2021-09-26] MEDS ORDERED: DIAZEPAM 10 MG TABLET PO PRN (09:30)
[2021-09-26] MEDS ORDERED: CYANOCOBALAMIN 1,000 MCG/ML VIAL IM ONE (09:30)
[2021-09-26 10:43] VITALS: BP 121/72
[2021-09-26 15:50] VITALS: BP 120/80
[2021-09-26 16:15] VITALS: BP 113/66
[2021-09-26] MEDS: SERTRALINE HCL 100 MG TABLET PO SCH (20:40)
[2021-09-26] MEDS: OLANZapine 5 MG RAPDIS TABLET PO SCH (20:40)
[2021-09-26] MEDS: MELATONIN 5 MG TABLET PO SCH (20:40)
[2021-09-27] VITALS (9 sets, daily range): BP systolic 111–127; BP diastolic 65–95
[2021-09-27] MEDS ORDERED: DIAZEPAM 10 MG TABLET PO PRN (07:00)
[2021-09-27] MEDS: NALTREXONE HCL 50 MG TABLET PO SCH (09:36)
[2021-09-27] MEDS: DIAZEPAM 10 MG TABLET PO SCH ×4 (09:36→20:36)
[2021-09-27] MEDS: THIAMINE 100 MG TABLET PO SCH ×2 (09:36→16:38)
[2021-09-27] MEDS: FOLIC ACID 1 MG TABLET PO SCH (09:36)
[2021-09-27] MEDS: MULTIVITAMINS WITH MINERALS, THERAPEUTIC TABLET PO SCH (09:36)
[2021-09-27] MEDS: OMEGA-3/DHA/EPA/FISH OIL 1,000 MG CAPSULE PO SCH (09:36)
[2021-09-27] MEDS ORDERED: OLAN10TA26 PO (16:01)
[2021-09-27] MEDS ORDERED: NALT50TA PO (16:01)
[2021-09-27] MEDS ORDERED: SERT-440 PO (16:01)
[2021-09-27] MEDS ORDERED: OMEG-135 PO (16:01)
[2021-09-27] MEDS ORDERED: MELA5TAB40 PO (16:01)
[2021-09-27] MEDS: MELATONIN 5 MG TABLET PO SCH (20:36)
[2021-09-27] MEDS: SERTRALINE HCL 100 MG TABLET PO SCH (20:36)
[2021-09-27] MEDS ORDERED: OLANZapine 10 MG RAPDIS TABLET PO SCH (21:00)
[2021-09-28 00:22] VITALS: BP 123/74
[2021-09-28 08:27] VITALS: BP 119/82
[2021-09-28] MEDS: FOLIC ACID 1 MG TABLET PO SCH (08:56)
[2021-09-28] MEDS: OMEGA-3/DHA/EPA/FISH OIL 1,000 MG CAPSULE PO SCH (08:56)
[2021-09-28] MEDS: MULTIVITAMINS WITH MINERALS, THERAPEUTIC TABLET PO SCH (08:56)
[2021-09-28] MEDS: DIAZEPAM 10 MG TABLET PO SCH ×2 (08:56→12:35)
[2021-09-28] MEDS: THIAMINE 100 MG TABLET PO SCH (08:56)
[2021-09-28] MEDS: NALTREXONE HCL 50 MG TABLET PO SCH (08:56)
[2021-09-29] MEDS ORDERED: DIAZEPAM 5 MG TABLET PO PRN (07:00)
[2021-09-29] MEDS ORDERED: DIAZEPAM 5 MG TABLET PO SCH (09:00)
[2021-09-30] MEDS ORDERED: DIAZEPAM 5 MG TABLET PO PRN (07:00)
== END 2021-09-28 13:00 | disposition home or self-care (01) | DRG 750 ==
LOC: EMS 10:45 → B2S 19:00
PROVIDERS: ADMIT Psychiatry & Neurology Psychiatry; ATTEND Psychiatry & Neurology Psychiatry
DX: F25.1 Schizoaffective disorder, depressive type (principal); G12.21 Amyotrophic lateral sclerosis; R45.851 Suicidal ideations; F32.9 Major depressive disorder, single episode, unspecified; E11.9 Type 2 diabetes mellitus without complications; E78.5 Hyperlipidemia, unspecified; F10.20 Alcohol dependence, uncomplicated; Z20.822 Contact with and (suspected) exposure to COVID-19; G40.409 Other generalized epilepsy and epileptic syndromes, not intractable, without status epilepticus; Y90.8 Blood alcohol level of 240 mg/100 ml or more; J44.9 Chronic obstructive pulmonary disease, unspecified; K21.9 Gastro-esophageal reflux disease without esophagitis; Z91.51 Personal history of suicidal behavior; Z87.891 Personal history of nicotine dependence; Z81.8 Family history of other mental and behavioral disorders; Z63.9 Problem related to primary support group, unspecified; Z59.9 Problem related to housing and economic circumstances, unspecified; Z55.9 Problems related to education and literacy, unspecified; Z65.3 Problems related to other legal circumstances
CPT/HCPCS: 80053; 80061; 83036; 84439; 84443; 85025; 86592; 99285; G0480; G0481; J3420; Q9967

== ENCOUNTER 2021-10-02 16:46 | Inpatient (IN) | payer MEDICAID ==
[~2021-10-02] VITALS: Ht 167.6 cm; Wt 85.0 kg
[~2021-10-02 16:46] MED LIST changes: +MELA5TAB40 PO; +NALT50TA PO; +OLAN10TA26 PO; -OLAN5TAB52 PO; -OLAN7.5T22 PO; +OMEG-135 PO; -OMEP20 PO; -SERT-158 PO; +SERT-440 PO; -SIMV-260 PO
[2021-10-02 21:44] LABS: BASOPHILS % (AUTO) 0.3 % (0.0-2.0); EOSINOPHILS % (AUTO) 0.9 % (1.0-6.0); HEMATOCRIT 42.8 % (41-53); HEMOGLOBIN 14.7 g/dL (13.5-17.5); LYMPHOCYTES # (AUTO) 4.3 K/uL (1.0-4.8); LYMPHOCYTES % (AUTO) 60.4 % (22.0-44.0); MEAN CORPUSCULAR HEMOGLOBIN 29.6 pg (26.0-34.0); MEAN CORPUSCULAR HGB CONC 34.3 G/dL (31.0-37.0); MEAN CORPUSCULAR VOLUME 86 fL (80-100); MONOCYTES # (AUTO) 0.4 K/uL (0.1-1.0); MONOCYTES % (AUTO) 5.5 % (2.0-9.0); NEUTROPHILS # (AUTO) 2.3 K/uL (1.8-7.7); NEUTROPHILS % (AUTO) 32.9 % (40.0-70.0); PLATELET COUNT (AUTO) 196 K/uL (150-450); RED BLOOD CELL COUNT(AUTO) 4.96 MIL/uL (4.50-5.90); RED CELL DISTRIBUTION WIDTH 13.7 % (11.5-14.5)
[2021-10-02 22:02] LABS: ANION GAP 10 mmol/L (8-16); CALCIUM, TOTAL 8.6 mg/dL (8.8-10.5); CARBON DIOXIDE 27 mmol/L (22-29); CHLORIDE 102 mmol/L (98-107); CREATININE 0.88 mg/dL (0.60-1.30); GLOMERULAR FILTR. RATE CALC > 60 mL/min (>60); GLUCOSE,RANDOM 121 mg/dL (70-110); SODIUM SERUM 139 mmol/L (136-145); UREA NITROGEN, BLOOD 10 mg/dL (7-18)
[2021-10-02 22:08] LABS: ALANINE AMINOTRANSFERASE 118 U/L (12-78); ALBUMIN 4.3 g/dL (3.4-5.0); ALKALINE PHOSPHATASE 103 U/L (46-116); ASPARTATE AMINOTRANSFERASE 66 U/L (15-37); BILIRUBIN,TOTAL 0.4 mg/dL (0.1-1.0); TOTAL PROTEIN, SERUM 8.7 g/dL (6.4-8.2)
[2021-10-02] MEDS ORDERED: LORazepam 2 MG TABLET PO PRN (23:00)
[2021-10-02] MEDS ORDERED: OLANZapine 5 MG RAPDIS TABLET PO PRN (23:00)
[2021-10-02] MEDS ORDERED: ZOLPIDEM TARTRATE 10 MG TABLET PO PRN (23:00)
[2021-10-02 23:46] LABS: COVID AG,FIA SOURCE NASOPHARYNGEAL
[2021-10-02 23:57] LABS: APPEARANCE,URINE CLEAR (CLEAR); BILIRUBIN,URINE NEGATIVE (NEGATIVE); GLUCOSE, URINE (UA) NEGATIVE (NEGATIVE); KETONES,URINE NEGATIVE (NEGATIVE); LEUKOCYTE ESTERASE ,URINE NEGATIVE (NEGATIVE); NITRATE,URINE NEGATIVE (NEGATIVE); OCCULT BLOOD,URINE NEGATIVE (NEGATIVE); PROTEIN,URINE TRACE (NEGATIVE); UROBILINOGEN,URINE 0.2 mg/dL (<=1.0)
[2021-10-03] VITALS (9 sets, daily range): BP systolic 118–132; BP diastolic 77–85
[2021-10-03 00:03] LABS: AMPHET/METH SCREEN,URINE NEGATIVE (NEGATIVE); BARBITURATE SCREEN, URINE NEGATIVE (NEGATIVE); BENZODIAZEPINES SCREEN,URINE POSITIVE (NEGATIVE); CANNABINOID SCREEN,URINE NEGATIVE (NEGATIVE); COCAINE SCREEN,URINE NEGATIVE (NEGATIVE); METHADONE SCREEN, URINE NEGATIVE (NEGATIVE); OPIATE SCREEN,URINE NEGATIVE (NEGATIVE)
[2021-10-03 00:08] LABS: PHENCYCLIDINE SCREEN,URINE NEGATIVE (NEGATIVE)
[2021-10-03] MEDS ORDERED: INFLUENZA VIRUS VACCINE QVS 2021-22 (6MO+)/PF 60 MCG/0.5 ML SYRINGE IM. ONE (00:30)
[2021-10-03 02:26] LABS: CHOL/HDL RATIO 5.8 (4.2-7.3); CHOLESTEROL 197 mg/dL (131-200); HDL CHOLESTEROL 34 mg/dL (40-60); TRIGLYCERIDES 646 mg/dL (15-150)
[2021-10-03] MEDS ORDERED: PROMETHAZINE HCL 25 MG TABLET PO PRN (08:00)
[2021-10-03] MEDS ORDERED: HydrOXYzine PAMOATE 50 MG CAPSULE PO PRN (08:00)
[2021-10-03] MEDS ORDERED: CYANOCOBALAMIN 1,000 MCG/ML VIAL IM ONE (08:00)
[2021-10-03] MEDS ORDERED: DIAZEPAM 10 MG TABLET PO PRN (08:00)
[2021-10-03] MEDS ORDERED: LOPERAMIDE HCL 2 MG CAPSULE PO PRN (08:00)
[2021-10-03] MEDS ORDERED: GuaiFENesin/D-METHORPHAN [SUGAR-FREE] 200-20MG/10 ML SYRUP UDCUP PO PRN (08:00)
[2021-10-03] MEDS: THIAMINE 100 MG TABLET PO SCH ×2 (08:49→16:59)
[2021-10-03] MEDS: OMEGA-3/DHA/EPA/FISH OIL 1,000 MG CAPSULE PO SCH (08:49)
[2021-10-03] MEDS: NALTREXONE HCL 50 MG TABLET PO SCH (08:49)
[2021-10-03] MEDS: MULTIVITAMINS WITH MINERALS, THERAPEUTIC TABLET PO SCH (08:49)
[2021-10-03] MEDS: FOLIC ACID 1 MG TABLET PO SCH (08:49)
[2021-10-03] MEDS: SERTRALINE HCL 100 MG TABLET PO SCH (08:49)
[2021-10-03] MEDS: MELATONIN 5 MG TABLET PO SCH (20:41)
[2021-10-03] MEDS ORDERED: OLANZapine 5 MG RAPDIS TABLET PO SCH (21:00)
[2021-10-04] VITALS (10 sets, daily range): BP systolic 122–132; BP diastolic 73–82
[2021-10-04] MEDS ORDERED: DIAZEPAM 10 MG TABLET PO PRN (07:00)
[2021-10-04] MEDS: THIAMINE 100 MG TABLET PO SCH ×2 (08:59→16:24)
[2021-10-04] MEDS: SERTRALINE HCL 100 MG TABLET PO SCH (08:59)
[2021-10-04] MEDS: MULTIVITAMINS WITH MINERALS, THERAPEUTIC TABLET PO SCH (08:59)
[2021-10-04] MEDS: OMEGA-3/DHA/EPA/FISH OIL 1,000 MG CAPSULE PO SCH (08:59)
[2021-10-04] MEDS: NALTREXONE HCL 50 MG TABLET PO SCH (08:59)
[2021-10-04] MEDS: DIAZEPAM 10 MG TABLET PO SCH ×4 (08:59→20:30)
[2021-10-04] MEDS: FOLIC ACID 1 MG TABLET PO SCH (08:59)
[2021-10-04] MEDS ORDERED: SERT-440 PO (13:33)
[2021-10-04] MEDS ORDERED: NALT50TA PO (13:33)
[2021-10-04] MEDS ORDERED: OMEG-135 PO (13:33)
[2021-10-04] MEDS ORDERED: OLAN5TAB94 PO (13:33)
[2021-10-04] MEDS ORDERED: MELA5TAB40 PO (13:33)
[2021-10-04] MEDS: MELATONIN 5 MG TABLET PO SCH (20:30)
[2021-10-04] MEDS ORDERED: OLANZapine 10 MG RAPDIS TABLET PO SCH (21:00)
[2021-10-05] VITALS (7 sets, daily range): BP systolic 118–129; BP diastolic 64–78
[2021-10-05] MEDS: THIAMINE 100 MG TABLET PO SCH (08:39)
[2021-10-05] MEDS: MULTIVITAMINS WITH MINERALS, THERAPEUTIC TABLET PO SCH (08:39)
[2021-10-05] MEDS: DIAZEPAM 10 MG TABLET PO SCH ×2 (08:39→12:35)
[2021-10-05] MEDS: OMEGA-3/DHA/EPA/FISH OIL 1,000 MG CAPSULE PO SCH (08:39)
[2021-10-05] MEDS: FOLIC ACID 1 MG TABLET PO SCH (08:39)
[2021-10-05] MEDS: NALTREXONE HCL 50 MG TABLET PO SCH (08:39)
[2021-10-05] MEDS: SERTRALINE HCL 100 MG TABLET PO SCH (08:39)
[2021-10-06] MEDS ORDERED: DIAZEPAM 5 MG TABLET PO PRN (07:00)
[2021-10-06] MEDS ORDERED: DIAZEPAM 5 MG TABLET PO SCH (09:00)
[2021-10-07] MEDS ORDERED: DIAZEPAM 5 MG TABLET PO PRN (07:00)
== END 2021-10-05 15:00 | disposition home or self-care (01) | DRG 750 ==
LOC: EMS 16:57 → B3A 10-03 01:13
PROVIDERS: ADMIT Psychiatry & Neurology Psychiatry; ATTEND Psychiatry & Neurology Psychiatry
DX: F20.0 Paranoid schizophrenia (principal); K70.30 Alcoholic cirrhosis of liver without ascites; Z91.19 Patient's noncompliance with other medical treatment and regimen; E78.00 Pure hypercholesterolemia, unspecified; Z20.822 Contact with and (suspected) exposure to COVID-19; E78.1 Pure hyperglyceridemia; F10.10 Alcohol abuse, uncomplicated; J44.9 Chronic obstructive pulmonary disease, unspecified; Z55.9 Problems related to education and literacy, unspecified; Z65.3 Problems related to other legal circumstances; Z63.9 Problem related to primary support group, unspecified; Z81.8 Family history of other mental and behavioral disorders; Z59.9 Problem related to housing and economic circumstances, unspecified; Z87.828 Personal history of other (healed) physical injury and trauma
CPT/HCPCS: 80053; 80061; 81003; 85025; 87081; 90686; 99285; G0480; J3420; Q9967

== ENCOUNTER 2022-06-14 20:51 | Emergency (ER) | payer MEDICAID ==
[~2022-06-14] VITALS: Ht 167.6 cm; Wt 84.0 kg
[~2022-06-14 20:51] MED LIST changes: -OLAN10TA26 PO; +OLAN5TAB94 PO
[2022-06-15 00:23] VITALS: BP 119/81
[2022-06-15 01:04] LABS: BASOPHILS % (AUTO) 1.3 % (0.0-2.0); EOSINOPHILS % (AUTO) 0.8 % (1.0-6.0); HEMATOCRIT 39.7 % (41-53); HEMOGLOBIN 13.4 g/dL (13.5-17.5); LYMPHOCYTES # (AUTO) 2.4 K/uL (1.0-4.8); LYMPHOCYTES % (AUTO) 35.7 % (22.0-44.0); MEAN CORPUSCULAR HEMOGLOBIN 29.1 pg (26.0-34.0); MEAN CORPUSCULAR HGB CONC 33.7 G/dL (31.0-37.0); MEAN CORPUSCULAR VOLUME 86 fL (80-100); MONOCYTES # (AUTO) 0.5 K/uL (0.1-1.0); MONOCYTES % (AUTO) 7.4 % (2.0-9.0); NEUTROPHILS # (AUTO) 3.7 K/uL (1.8-7.7); NEUTROPHILS % (AUTO) 54.8 % (40.0-70.0); PLATELET COUNT (AUTO) 189 K/uL (150-450); RED BLOOD CELL COUNT(AUTO) 4.59 MIL/uL (4.50-5.90); RED CELL DISTRIBUTION WIDTH 13.5 % (11.5-14.5)
[2022-06-15 01:17] LABS: ANION GAP 8 mmol/L (8-16); CALCIUM, TOTAL 8.8 mg/dL (8.8-10.5); CARBON DIOXIDE 30 mmol/L (22-29); CHLORIDE 100 mmol/L (98-107); CREATININE 0.68 mg/dL (0.60-1.30); GLUCOSE,RANDOM 111 mg/dL (70-110); SODIUM SERUM 138 mmol/L (136-145); UREA NITROGEN, BLOOD 8 mg/dL (7-18)
[2022-06-15 01:19] LABS: ALANINE AMINOTRANSFERASE 35 U/L (12-78); ALBUMIN 3.9 g/dL (3.4-5.0); ALKALINE PHOSPHATASE 85 U/L (46-116); ASPARTATE AMINOTRANSFERASE 28 U/L (15-37); BILIRUBIN,TOTAL 0.4 mg/dL (0.1-1.0); TOTAL PROTEIN, SERUM 7.5 g/dL (6.4-8.2)
[2022-06-15 01:24] LABS: GLOMERULAR FILTR. RATE CALC > 60 mL/min (>60)
[2022-06-15] MEDS ORDERED: IBUPROFEN 600 MG TABLET PO ONE (02:00)
== END 2022-06-15 03:22 | disposition home or self-care (01) ==
LOC: EMS 20:52
DX: F10.20 Alcohol dependence, uncomplicated (principal); F32.A Depression, unspecified
CPT/HCPCS: 99283; 80053; 85025; 36415; G0480

== ENCOUNTER 2023-07-18 12:56 | Inpatient (IN) | payer MEDICAID ==
[~2023-07-18] VITALS: Ht 167.6 cm; Wt 77.1 kg
[2023-07-18 20:15] VITALS: BP 132/82; PULSE 86; RESP 18; TEMP 97.8; O2SAT 98
[2023-07-18] MEDS ORDERED: ZOLPIDEM TARTRATE 10 MG TABLET PO PRN (20:15)
[2023-07-18 20:29] VITALS: BP 115/81; PULSE 100; RESP 18; TEMP 97.8; O2SAT 96
[2023-07-18] MEDS ORDERED: INFLUENZA VIRUS VACCINE QVS 2023-24 (6MO+)/PF 60 MCG/0.5 ML SYRINGE IM. ONE (20:30)
[2023-07-18] MEDS ORDERED: PNEUMOCOCCAL VACCINE POLYVALENT 0.5 ML SYRINGE [PPSV23] IM. ONE (20:30)
[2023-07-18] MEDS: HALOPERIDOL 5 MG TABLET PO PRN (20:51)
[2023-07-18 21:15] VITALS: BP 137/80; PULSE 82; RESP 18; TEMP 97.9; O2SAT 99
[2023-07-18 22:15] VITALS: BP 135/87; PULSE 88; RESP 18; TEMP 98; O2SAT 97
[2023-07-18 23:15] VITALS: BP 129/86; PULSE 79; RESP 18; TEMP 97.6; O2SAT 98
[2023-07-19 03:15] VITALS: BP 126/62; PULSE 92; RESP 18; TEMP 97.9; O2SAT 99
[2023-07-19 07:17] VITALS: BP 132/65; PULSE 89; RESP 18; TEMP 97.7; O2SAT 97
[2023-07-19 08:15] VITALS: BP 130/70; PULSE 83; RESP 18; TEMP 98; O2SAT 98
[2023-07-19 08:26] LABS: BASOPHILS % (AUTO) 0.4 % (0.0-2.0); EOSINOPHILS % (AUTO) 1.1 % (1.0-6.0); HEMATOCRIT 38.9 % (41-53); HEMOGLOBIN 13.2 g/dL (13.5-17.5); LYMPHOCYTES # (AUTO) 2.3 K/uL (1.0-4.8); LYMPHOCYTES % (AUTO) 42.9 % (22.0-44.0); MEAN CORPUSCULAR HGB CONC 33.9 G/dL (31.0-37.0); MEAN CORPUSCULAR VOLUME 89 fL (80-100); MONOCYTES # (AUTO) 0.3 K/uL (0.1-1.0); MONOCYTES % (AUTO) 6.6 % (2.0-9.0); NEUTROPHILS # (AUTO) 2.6 K/uL (1.8-7.7); PLATELET COUNT (AUTO) 168 K/uL (150-450); RED BLOOD CELL COUNT(AUTO) 4.39 MIL/uL (4.50-5.90); RED CELL DISTRIBUTION WIDTH 14.1 % (11.5-14.5); WHITE BLOOD COUNT (AUTO) 5.3 K/uL (4.5-11.0)
[2023-07-19 08:37] LABS: ALANINE AMINOTRANSFERASE 23 U/L (12-78); ALBUMIN 3.3 g/dL (3.4-5.0); ALKALINE PHOSPHATASE 75 U/L (46-116); ANION GAP 6 mmol/L (8-16); ASPARTATE AMINOTRANSFERASE 19 U/L (15-37); BILIRUBIN,TOTAL 0.8 mg/dL (0.1-1.0); CALCIUM, TOTAL 8.5 mg/dL (8.8-10.5); CARBON DIOXIDE 30 mmol/L (22-29); CHLORIDE 101 mmol/L (98-107); CHOLESTEROL 191 mg/dL (131-200); CREATININE 0.65 mg/dL (0.60-1.30); GLOMERULAR FILTR. RATE CALC > 60 mL/min (>60); GLUCOSE,RANDOM 111 mg/dL (70-110); HDL CHOLESTEROL 48 mg/dL (40-60); LDL CHOL (CALC.) 110 mg/dL (0-130); SODIUM SERUM 137 mmol/L (136-145); TOTAL PROTEIN, SERUM 7.1 g/dL (6.4-8.2); TRIGLYCERIDES 163 mg/dL (15-150); UREA NITROGEN, BLOOD 10 mg/dL (7-18)
[2023-07-19 08:38] LABS: HEMOGLOBIN A1C 5.8 % (3.8-5.6)
[2023-07-19] MEDS ORDERED: MAG HYDROX/ALUMINUM HYD/SIMETH ES 30 ML SUSPENSION UDCUP PO PRN (10:00)
[2023-07-19] MEDS ORDERED: NICOTINE 14 MG/24 HOUR PATCH TD PRN (10:00)
[2023-07-19] MEDS ORDERED: MAGNESIUM HYDROXIDE SUSPENSION 30 ML UDCUP PO PRN (10:00)
[2023-07-19] MEDS ORDERED: ALBUTEROL SULFATE HFA 90 MCG/PUFF 8 GM INHALER IH PRN (10:00)
[2023-07-19] MEDS ORDERED: ACETAMINOPHEN 325 MG TABLET PO PRN (10:00)
[2023-07-19] MEDS ORDERED: LOPERAMIDE HCL 2 MG CAPSULE PO PRN (10:00)
[2023-07-19] MEDS ORDERED: DOCUSATE SODIUM 100 MG CAPSULE PO PRN (10:00)
[2023-07-19] MEDS ORDERED: PETROLATUM,WHITE 28 GM JELLY TP PRN (10:00)
[2023-07-19] MEDS ORDERED: CloNIDine HCL 0.1 MG TABLET PO PRN (10:00)
[2023-07-19] MEDS ORDERED: ONDANSETRON HCL 4 MG TABLET PO PRN (10:00)
[2023-07-19] MEDS ORDERED: GuaiFENesin/D-METHORPHAN [SUGAR-FREE] 200-20MG/10 ML SYRUP UDCUP PO PRN (10:00)
[2023-07-19] MEDS ORDERED: IBUPROFEN 400 MG TABLET PO PRN (10:00)
[2023-07-19] MEDS: LORazepam 2 MG TABLET PO PRN ×2 (10:08→17:16)
[2023-07-19] MEDS: SERTRALINE HCL 100 MG TABLET PO SCH (10:08)
[2023-07-19 11:15] VITALS: BP 130/70; PULSE 83; RESP 19; TEMP 98; O2SAT 98
[2023-07-19 15:15] VITALS: BP 139/84; PULSE 108; RESP 18; TEMP 97.7
[2023-07-19] MEDS: LevETIRAcetam 250 MG TABLET PO SCH (17:16)
[2023-07-19] MEDS: HALOPERIDOL 5 MG TABLET PO PRN (17:17)
[2023-07-19] MEDS: OLANZapine 10 MG RAPDIS TABLET PO SCH (20:03)
[2023-07-19] MEDS: ATORVASTATIN CALCIUM 20 MG TABLET PO SCH (20:03)
[2023-07-19] MEDS: MELATONIN 5 MG TABLET PO SCH (20:03)
[2023-07-19 20:11] VITALS: BP 142/80; PULSE 81; RESP 18; TEMP 97.6; O2SAT 98
[2023-07-20 05:19] VITALS: BP 110/65; PULSE 62; RESP 18; TEMP 97.6; O2SAT 97
[2023-07-20] MEDS: MetFORMIN HCL 500 MG TABLET PO SCH (06:38)
[2023-07-20 07:53] LABS: HEMOGLOBIN A1C 5.8 % (3.8-5.6)
[2023-07-20 08:00] VITALS: BP 117/79; PULSE 91; RESP 18; TEMP 97.7; O2SAT 98
[2023-07-20 08:05] LABS: CHOL/HDL RATIO 3.6 (4.2-7.3); THYROID STIMULATING HORMONE 2.36 uIU/mL (0.36-3.74)
[2023-07-20 08:45] VITALS: BP 117/79; PULSE 91; RESP 18; TEMP 97.7; O2SAT 98
[2023-07-20] MEDS: OMEGA-3/DHA/EPA/FISH OIL 1,000 MG CAPSULE PO SCH (08:47)
[2023-07-20] MEDS: SERTRALINE HCL 100 MG TABLET PO SCH (08:47)
[2023-07-20] MEDS: LevETIRAcetam 250 MG TABLET PO SCH ×2 (09:16→16:37)
[2023-07-20 20:11] VITALS: BP 107/69; PULSE 68; RESP 18; TEMP 97; O2SAT 97
[2023-07-20] MEDS: MELATONIN 5 MG TABLET PO SCH (20:55)
[2023-07-20] MEDS: ATORVASTATIN CALCIUM 20 MG TABLET PO SCH (20:55)
[2023-07-20] MEDS: OLANZapine 10 MG RAPDIS TABLET PO SCH (20:56)
[2023-07-21] MEDS: MetFORMIN HCL 500 MG TABLET PO SCH (06:50)
[2023-07-21 08:26] VITALS: BP 128/89; PULSE 86; RESP 19; TEMP 97.6; O2SAT 99
[2023-07-21] MEDS: SERTRALINE HCL 100 MG TABLET PO SCH (08:32)
[2023-07-21] MEDS: LevETIRAcetam 250 MG TABLET PO SCH ×2 (08:32→16:31)
[2023-07-21] MEDS: OMEGA-3/DHA/EPA/FISH OIL 1,000 MG CAPSULE PO SCH (08:32)
[2023-07-21] MEDS: ATORVASTATIN CALCIUM 20 MG TABLET PO SCH (20:11)
[2023-07-21] MEDS: MELATONIN 5 MG TABLET PO SCH (20:11)
[2023-07-21] MEDS: OLANZapine 10 MG RAPDIS TABLET PO SCH (20:12)
[2023-07-21 20:22] VITALS: BP 107/76; PULSE 95; RESP 19; TEMP 98.1; O2SAT 94
[2023-07-22] MEDS: MetFORMIN HCL 500 MG TABLET PO SCH (06:21)
[2023-07-22 08:33] VITALS: BP 106/77; PULSE 96; RESP 18; TEMP 97.8; O2SAT 95
[2023-07-22] MEDS: OMEGA-3/DHA/EPA/FISH OIL 1,000 MG CAPSULE PO SCH (09:06)
[2023-07-22] MEDS: SERTRALINE HCL 100 MG TABLET PO SCH (09:07)
[2023-07-22] MEDS: LevETIRAcetam 250 MG TABLET PO SCH ×2 (09:07→16:38)
[2023-07-22] MEDS: OLANZapine 10 MG RAPDIS TABLET PO SCH (20:01)
[2023-07-22] MEDS: ATORVASTATIN CALCIUM 20 MG TABLET PO SCH (20:01)
[2023-07-22] MEDS: MELATONIN 5 MG TABLET PO SCH (20:01)
[2023-07-22 20:10] VITALS: BP 136/83; PULSE 103; RESP 18; TEMP 97.6; O2SAT 98
[2023-07-23] MEDS: MetFORMIN HCL 500 MG TABLET PO SCH (06:48)
[2023-07-23 08:44] VITALS: BP 108/72; PULSE 72; RESP 18; TEMP 96.5; O2SAT 98
[2023-07-23] MEDS: OMEGA-3/DHA/EPA/FISH OIL 1,000 MG CAPSULE PO SCH (09:09)
[2023-07-23] MEDS: LevETIRAcetam 250 MG TABLET PO SCH (09:09)
[2023-07-23] MEDS: SERTRALINE HCL 100 MG TABLET PO SCH (09:09)
[2023-07-23] MEDS ORDERED: MELA1TAB17 PO (11:20)
[2023-07-23] MEDS ORDERED: MELA5TAB40 PO (11:22)
[2023-07-23] MEDS ORDERED: ATOR20TA PO (11:25)
[2023-07-23] MEDS ORDERED: LEVE250T4 PO (11:25)
[2023-07-23] MEDS ORDERED: METF-1211 PO (11:26)
== END 2023-07-23 12:35 | disposition home or self-care (01) | DRG 750 ==
LOC: B3A 20:09 → B2S 07-19 20:23
PROVIDERS: ADMIT Psychiatry & Neurology Psychiatry; ATTEND Psychiatry & Neurology Psychiatry
DX: F25.1 Schizoaffective disorder, depressive type (principal); R45.851 Suicidal ideations; K74.60 Unspecified cirrhosis of liver; E11.9 Type 2 diabetes mellitus without complications; G40.909 Epilepsy, unspecified, not intractable, without status epilepticus; D64.9 Anemia, unspecified; E78.5 Hyperlipidemia, unspecified; Z79.899 Other long term (current) drug therapy; Z59.00 Homelessness unspecified; Z87.828 Personal history of other (healed) physical injury and trauma
CPT/HCPCS: 80053; 80061; 83036; 84443; 85025; 86592; Q9967